=== PATIENT | female | born 1990 | race Caucasian/White ===

== ENCOUNTER 2018-07-11 07:53 | Emergency (ER) | payer OTHER, MEDICAID, SELFPAY ==
[2018-07-11 08:00] VITALS: BP 103/67; PULSE 72; RESP 16; TEMP 36.5; O2SAT 100; BMI 29.0
[2018-07-11] MEDS: ALBUTEROL 2.5 MG/3 ML NEB (ADULT) INH (08:32)
--- NOTE | 2018-07-11 08:32 | ED_ITS ---
HPI - URI/Sore Throat General Chief Complaint: Upper Respiratory Symptoms Stated Complaint: SORE THROAT Time Seen by Provider: 07/11/18 08:16 Source: patient Mode of arrival: ambulatory History of Present Illness HPI Narrative: patient is a 28-year-old female presenting with sore throat and losing her voice for the last was 3 weeks. She says nothing is helping. She says she cannot talk in the morning. Throughout the day does get slightly better. she has a cough but nonproductive. His she says she occasionally smokes marijuana but is currently out of money so she is not smoking. She does have some shortness of breath but not too bad she has been using her inhaler but does not feel like it is helping. She was seen at a different facility earlier and was told that there was nothing anyone could do. MD Complaint: cough and sore throat Onset (ago): week(s) (3) Duration: constant Related Data Home Medications Medication Instructions Recorded Confirmed ACETAMINOPHEN (Acetaminophen) 1,000 mg PO BID #0 08/07/10 ALBUTEROL SULFATE (Ventolin / 1 ml INH QID #0 08/07/10 Proventil) INSULIN HUMAN NPH 10ML (HUMULIN N) 75 u SQ Q DAY #0 08/07/10 Insulin Human Regular (Humulin R / 20 units SQ TIDAC #0 08/07/10 Novolin R) Metformin Hydrochloride 1,000 mg PO TID #0 08/07/10 (Glucophage) [INSULIN LANTUS] 90 u SQ BID #0 08/07/10 Previous Rx's Medication Instructions Recorded ciprofloxacin HCl [Cipro] 500 mg PO BID 5 Days #0 tab 08/02/16 tramadol 50 mg PO Q6HP PRN #20 tab 08/02/16 insulin glargine [Lantus U-100 75 u SQ BID 30 Days #0 vial 08/23/16 Insulin] insulin regular human [Humulin R 20 unit SQ TIDCC 30 Days #0 ml 08/23/16 Regular U-100 Insuln] guaifenesin 200 mg PO Q4H PRN #120 ml 07/11/18 Allergies Allergy/AdvReac Type Severity Reaction Status Date / Time acetaminophen [From TYLENOL] Allergy Unknown RASH Verified 07/11/18 08:00 azithromycin Allergy Unknown RASH Verified 07/11/18 08:00 [From ZITHROMAX Z-BOY] Review of Systems Review of Systems ROS Unobtainable: All systems reviewed & are unremarkable except as noted in HPI and below Constitutional Denies chills, Denies fever(s), Denies lethargy and Denies weakness ENT Ears, Nose, Mouth, and Throat: Reports as per HPI Cardiovascular Denies chest pain, Denies irregular heart rhythm, Denies lightheadedness, Denies palpitations and Denies orthopnea Gastrointestinal Gastrointestinal: Denies abdominal pain, Denies change in bowel habits, Denies diarrhea, Denies nausea and Denies vomiting Genitourinary Denies hematuria, Denies flank pain, Denies urinary incontinence and Denies urinary urgency Musculoskeletal Denies back pain, Denies muscle weakness, Denies numbness and Denies tingling Integumentary/Breasts Denies pruritus, Denies erythema, Denies rash and Denies wounds Neurologic Denies numbness, Denies tingling and Denies weakness Endocrine Denies palpitations [facility] Medical History Diabetes (Acute) Social History housing: homeless occupational status: unemployed substance use type: marijuana Social History housing: homeless occupational status: unemployed substance use type: marijuana Exam Initial Vital Signs Initial Vital Signs: Vital Signs Temperature 97.7 F 07/11/18 08:00 Pulse Rate 72 07/11/18 08:00 Respiratory Rate 16 07/11/18 08:00 Blood Pressure 103/67 07/11/18 08:00 Pulse Oximetry 100 07/11/18 08:00 GENERAL: Alert well-appearing female no acute distress HEENT: Head atraumatic,EOMI, pupils reactive, PHARYNX:No erythema, no tonsillar exudate, no cervical lymphadenopathy CARDIOVASCULAR: Regular rate and rhythm without murmurs, rubs or gallops. RESPIRATORY: Breath sounds equal bilaterally, no wheezes rales or rhonchi. ABDOMEN: Soft, nontender. Normoactive bowel sounds all 4 quadrants. No guarding or rebound. EXTREMITIES: Normal range of motion, no clubbing or edema. Neurovascularly intact NEUROLOGICAL: Alert and oriented x4.Normal gait and speech. SKIN: Warm, dry, no laceration, no petechiae, no rashes or lesions. Course Orders Ordered: Discontinued Medications Albuterol (Ventolin) 2.5 mg INH NOW ONE Stop: 07/11/18 08:30 Last Admin: 07/11/18 08:32 Dose: 2.5 mg Vital Signs - 8 hr 07/11/18 08:00 07/11/18 08:35 07/11/18 09:15 Temperature 97.7 F Pulse Rate 72 75 91 H Respiratory Rate 16 18 Blood Pressure 103/67 97/62 Blood Pressure [Left Arm] 97/62 Pulse Oximetry 100 100 100 MDM - URI/Sore Throat Lab Data Point of Care Testing Rapid Strep A Negative MDM Narrative Medical decision making narrative: asked patient about taking care of her diabetes. She says that her glucose is typically about 300 is difficult he all being homeless that she is not eating frequently. She is able to get her insulin and medications. She has been using appropriately. No signs of DKA. Discharge Plan Departure Patient Disposition: Home Clinical Impression: Laryngitis, Chest pain Discharge Date/Time: 07/11/18 09:15 Interventions: ED Discharge Assessment Last Done: 07/11/18 09:15 Instructions: DI for Laryngitis Activity Restrictions/Additional Instructions: *You have been diagnosed with laryngitis *What to do: no antibiotics indicated at this time *Continue to take medications as directed albuterol 1-2 puffs every 4 hr if needed for coughing or shortness of breath Guaifenesin cough syrup every 4 hr if needed for cough *Follow up with your primary care provider in 2-3 days *Return to ER if you should have difficulty breathing, sweats and chills, or any new, worsening or concerning symptoms Prescriptions: New guaifenesin 100 mg/5 mL liquid 200 mg PO Q4H PRN (Reason: cold symptoms) Qty: 120 RF: 0 No Action Insulin Human Regular (Humulin R / Novolin R) 20 units SQ TIDAC Qty: 0 RF: 0 INSULIN HUMAN NPH 10ML (HUMULIN N) 75 u SQ Q DAY Qty: 0 RF: 0 [INSULIN LANTUS] 90 u SQ BID Qty: 0 RF: 0 ALBUTEROL SULFATE (Ventolin / Proventil) 1 ml INH QID Qty: 0 RF: 0 Metformin Hydrochloride (Glucophage) 1,000 mg PO TID Qty: 0 RF: 0 ACETAMINOPHEN (Acetaminophen) 1,000 mg PO BID Qty: 0 RF: 0 tramadol 50 MG tablet 50 mg PO Q6HP PRNQty: 20 RF: 0 ciprofloxacin HCl [Cipro] 500 MG tablet 500 mg PO BID 5 Days Qty: 0 RF: 0 insulin glargine [Lantus U-100 Insulin] 100 UNIT/1 ML solution 75 u SQ BID 30 Days Qty: 0 RF: 0 insulin regular human [Humulin R Regular U-100 Insuln] 100 UNIT/1 ML solution 20 unit SQ TIDCC 30 Days Qty: 0 RF: 0 Referrals: Pastor Perales MD [Primary Care Provider] -
[2018-07-11 08:35] VITALS: PULSE 75; RESP 18; O2SAT 100
[2018-07-11 09:15] VITALS: BP 97/62; PULSE 91; O2SAT 100
== END 2018-07-11 09:15 | disposition home or self-care (01) ==
PROVIDERS: Emergency Provider Emergency Medicine; Family Provider Family Medicine; PCP Family Medicine
DX: J04.0 Acute laryngitis (principal); R07.89 Other chest pain
CPT/HCPCS: 87880; 94640; 99282; 99283; J7613

== ENCOUNTER 2025-03-20 19:43 | Emergency (ER) | payer OTHER, MEDICAID, SELFPAY ==
[2025-03-20 19:49] VITALS: BP 98/65; PULSE 116; RESP 18; TEMP 36.5; O2SAT 98; BMI 29.7
--- NOTE | 2025-03-20 20:47 | ED_ITS ---
HPI - Skin/Abscess/Foreign Bdy
--- NOTE | 2025-03-20 20:47 | ED.SKABFB ---
HPI - Skin/Abscess/Foreign Bdy <Lata Chikis, DO - Last Filed: 03/23/25 13:18> General Chief complaint: Skin/Abscess/Foreign Body Stated complaint: Skin boil on L glut, painful, sore on L breast Time Seen by Provider: 03/20/25 19:51 Source: patient Mode of arrival: Wheelchair Limitations: no limitations History of Present Illness HPI narrative: Patient is a 35-year-old female history of diabetes on glipizide experiencing homelessness presenting today with multiple abscesses. She reports that there is 1 on her right buttock and 1 on her right breast. She denies any kind of injection. She has had these before. Apparently her boyfriend tried to open and length of the 1 on her buttock but it is still quite painful. She feels like she is having hot sweats but no chills. Related Data Home Medications ?Medication ?Instructions ?Recorded ?Confirmed ACETAMINOPHEN (Acetaminophen) 1,000 mg PO BID ##0 08/07/10 ALBUTEROL SULFATE (Ventolin / 1 ml INH QID ##0 08/07/10 Proventil) INSULIN HUMAN NPH 10ML (HUMULIN N) 75 u SQ Q DAY ##0 08/07/10 Insulin Human Regular (Humulin R / 20 units SQ TIDAC ##0 08/07/10 Novolin R) Metformin Hydrochloride 1,000 mg PO TID ##0 08/07/10 (Glucophage) [INSULIN LANTUS] 90 u SQ BID ##0 08/07/10 Previous Rx's ?Medication ?Instructions ?Recorded ciprofloxacin HCl 500 mg tablet 500 mg PO BID 5 days #0 tabs 08/02/16 (Cipro) tramadol 50 mg tablet 50 mg PO Q6HP PRN #20 tabs 08/02/16 insulin glargine 100 unit/mL 75 u SQ BID 30 days #0 vials 08/23/16 subcutaneous solution (Lantus U-100 Insulin) insulin regular human 100 unit/mL 20 unit (0.2 mL) SQ TIDCC 30 days 08/23/16 injection solution (Humulin R #0 mL Regular U-100 Insulin) guaifenesin 100 mg/5 mL oral liquid 200 mg (10 mL) PO Q4H PRN cold 07/11/18 symptoms #120 mL sulfamethoxazole 800 2 tab PO BID 7 days #28 tabs 11/08/25 mg-trimethoprim 160 mg tablet (Bactrim DS) Allergies Allergy/AdvReac Type Severity Reaction Status Date / Time acetaminophen (From TYLENOL) Allergy Unknown RASH Verified 03/20/25 19:49 azithromycin (From ZITHROMAX Allergy Unknown RASH Verified 03/20/25 19:49 Z-BOY) Patient History <Lata Diop DO - Last Filed: 03/23/25 13:18> Medical History (Updated 03/20/25 @ 23:31 by Lata Diop DO) Diabetes Social History (Updated 07/11/18 @ 08:38 by Lata Diop DO) housing: homeless occupational status: unemployed substance use type: marijuana tobacco type: vaping Exam <Lata Diop DO - Last Filed: 03/23/25 13:18> Initial Vital Signs Initial Vital Signs: Vital Signs Temperature 97.7 F 03/20/25 19:49 Pulse Rate 116 H 03/20/25 19:49 Respiratory Rate 18 03/20/25 19:49 Blood Pressure 98/65 03/20/25 19:49 Pulse Oximetry 98 03/20/25 19:49 Oxygen Delivery Method Room Air 03/20/25 19:49 GENERAL: 35-year-old female appears older than stated age HEENT: Head atraumatic,EOMI, pupils reactive, face symmetric, very poor dentition CARDIOVASCULAR: Regular rate and rhythm without murmurs, rubs or gallops. RESPIRATORY: Breath sounds equal bilaterally, no wheezes rales or rhonchi. ABDOMEN: Soft, nontender. Normoactive bowel sounds all 4 quadrants. No guarding or rebound. EXTREMITIES: Normal range of motion, no clubbing or edema. Neurovascularly intact NEUROLOGICAL: Alert and oriented x4.Normal gait and speech. Cranial nerves II through XII grossly intact. SKIN: Multiple scarred lesions from prior abscesses all over right buttock there is a 2x3cm open wound that is draining there is induration no significant fluctuation. Right breast has a scabbed over lesion about 3 x 4 <Kian Sloan DO - Last Filed: 03/21/25 00:17> Initial Vital Signs Initial Vital Signs: Vital Signs Temperature 97.7 F 03/20/25 19:49 Pulse Rate 116 H 03/20/25 19:49 Respiratory Rate 18 03/20/25 19:49 Blood Pressure 98/65 03/20/25 19:49 Pulse Oximetry 98 03/20/25 19:49 Oxygen Delivery Method Room Air 03/20/25 19:49 Procedures <Lata Diop DO - Last Filed: 03/23/25 13:18> Abscess I/D I&D #1: Site: hector-rectal (right buttock) Side (if applicable): right Local Anesthetic: lidocaine 1% Amount of anesthesia used (mL): 3 Technique: incised with #11 blade Amount of fluid expressed (mL): 2 Course <Lata Diop DO - Last Filed: 03/23/25 13:18> Orders Ordered: Discontinued Medications Sodium Chloride (Normal Saline 0.9%) 1,000 mls @ 1,000 mls/hr IV BOLUS ONE Stop: 03/20/25 21:57 Last Infusion: 03/20/25 23:18 Dose: Infused Documented By: Admin: 03/20/25 22:03 Dose: 1,000 mls/hr Documented By: RACHELL Ceftriaxone Sodium 1,000 mg/ (Sodium Chloride) 100 mls @ 200 mls/hr IV NOW ONE Stop: 03/20/25 22:25 Last Infusion: 03/20/25 23:32 Dose: Infused Documented By: Admin: 03/20/25 22:54 Dose: 200 mls/hr Documented By: RACHELL Lidocaine HCl (Lidocaine 1% (Pf) 5 Ml) 5 ml INJ NOW ONE Stop: 03/20/25 22:25 Last Admin: 03/20/25 22:29 Dose: 5 ml Documented By: JUAN Vital Signs Vital signs: Vital Signs - 8 hr 03/20/25 19:49 03/20/25 21:26 03/20/25 21:59 Temperature 97.7 F Pulse Rate 116 H 98 H 104 H Respiratory Rate 18 Blood Pressure 98/65 Pulse Oximetry 98 96 99 Oxygen Delivery Method Room Air 03/20/25 22:00 03/20/25 22:00 03/20/25 22:30 Temperature Pulse Rate 105 H 104 H Respiratory Rate Blood Pressure 156/85 H Pulse Oximetry 99 99 Oxygen Delivery Method 03/20/25 22:30 03/20/25 23:00 03/20/25 23:00 Temperature Pulse Rate 105 H Respiratory Rate Blood Pressure 147/70 H 136/96 H Pulse Oximetry 98 Oxygen Delivery Method <Kian Sloan DO - Last Filed: 03/21/25 00:17> Orders Ordered: Discontinued Medications Sodium Chloride (Normal Saline 0.9%) 1,000 mls @ 1,000 mls/hr IV BOLUS ONE Stop: 03/20/25 21:57 Last Infusion: 03/20/25 23:18 Dose: Infused Documented By: Admin: 03/20/25 22:03 Dose: 1,000 mls/hr Documented By: RACHELL Ceftriaxone Sodium 1,000 mg/ (Sodium Chloride) 100 mls @ 200 mls/hr IV NOW ONE Stop: 03/20/25 22:25 Last Infusion: 03/20/25 23:32 Dose: Infused Documented By: Admin: 03/20/25 22:54 Dose: 200 mls/hr Documented By: RACHELL Lidocaine HCl (Lidocaine 1% (Pf) 5 Ml) 5 ml INJ NOW ONE Stop: 03/20/25 22:25 Last Admin: 03/20/25 22:29 Dose: 5 ml Documented By: JUAN Vital Signs Vital signs: Vital Signs - 8 hr 03/20/25 19:49 03/20/25 21:26 03/20/25 21:59 Temperature 97.7 F Pulse Rate 116 H 98 H 104 H Respiratory Rate 18 Blood Pressure 98/65 Pulse Oximetry 98 96 99 Oxygen Delivery Method Room Air 03/20/25 22:00 03/20/25 22:00 03/20/25 22:30 Temperature Pulse Rate 105 H 104 H Respiratory Rate Blood Pressure 156/85 H Pulse Oximetry 99 99 Oxygen Delivery Method 03/20/25 22:30 03/20/25 23:00 03/20/25 23:00 Temperature Pulse Rate 105 H Respiratory Rate Blood Pressure 147/70 H 136/96 H Pulse Oximetry 98 Oxygen Delivery Method MDM - Skin/Abscess/Foreign Bdy <Lata Diop DO - Last Filed: 03/23/25 13:18> Lab Data 03/20/25 21:55 03/20/25 21:55 Labs: Lab Results 03/20/25 03/20/25 03/20/25 Range/Units 20:58 21:36 21:55 WBC 11.0 (4.5-11.0) X10^3/uL RBC 4.23 (4.0-5.2) X10^6/uL Hgb 11.2 L (12.0-16.0) g/dL Hct 33.0 L (36-46) % MCV 78.1 L (80-100) fL MCH 26.5 (26-34) PG MCHC 34.0 (30-36) % RDW 13.7 (11.6-14.8) % Plt Count 297 (150-400) X10^3/uL Neut % (Auto) 72.4 (50-75) % Lymph % (Auto) 17.4 L (25-40) % [place] % (Auto) 7.1 (3-14) % Eos % (Auto) 2.3 (2-4) % Baso % (Auto) 0.8 (0-2) % Neut # (Auto) 8000 H (7371-9952) /uL Lymph # (Auto) 1900 (2366-1286) /uL [place] # (Auto) 800 (0-900) /uL Eos # (Auto) 300 (0-450) /uL Baso # (Auto) 100 (0-100) /uL VBG pH (7.33-7.43) VBG pCO2 (45-50) mmHg VBG pO2 (35-45) mmHg VBG HCO3 (24-28) mmol/L VBG Total CO2 (24-29) mmol/L VBG O2 Saturation (70-75) % VBG Base Excess (0-4) mmol/L Sodium 129 L (137-145) mmol/L Potassium 3.3 L (3.4-5.1) mmol/L Chloride 96 L (98-107) mmol/L Carbon Dioxide 28 (22-32) mmol/L BUN 16 (7-17) mg/dL Creatinine 1.27 H (0.52-1.04) mg/dL Estimated GFR 56 L (>60) mL/min BUN/Creatinine Ratio 12.6 (6-22) Glucose 662 H* (70-99) mg/dL POC Whole Bld Glucose > 500 H* (70-99) mg/dL Lactate 2.0 (0.7-2.1) mmol/L Calcium 8.1 L (8.4-10.2) mg/dL Total Bilirubin 0.1 L (0.2-1.3) mg/dL AST 16 (14-36) IU/L ALT 13 (<35) IU/L Alkaline Phosphatase 159 H (38-126) U/L Total Protein 6.9 (6.3-8.2) g/dL Albumin 3.2 L (3.5-5.0) g/dL Globulin 3.7 (1.7-4.1) g/dL Albumin/Globulin Ratio 0.9 L (1.0-2.8) Urine RBC 1-5/hpf (0-5/HPF) Urine WBC 1-5/hpf (0-5/HPF) Ur Squamous Epith Cells 1-5 /hpf (0-5/HPF) Urine Bacteria Occasional (0-1) (None) Ur Culture Indicated? Cult not indicated Vol Urine Centrifuged 10ml (spun) Ketones 0.04 (<0.27) mmol/L 03/20/25 Range/Units 22:03 WBC (4.5-11.0) X10^3/uL RBC (4.0-5.2) X10^6/uL Hgb (12.0-16.0) g/dL Hct (36-46) % MCV (80-100) fL MCH (26-34) PG MCHC (30-36) % RDW (11.6-14.8) % Plt Count (150-400) X10^3/uL Neut % (Auto) (50-75) % Lymph % (Auto) (25-40) % [place] % (Auto) (3-14) % Eos % (Auto) (2-4) % Baso % (Auto) (0-2) % Neut # (Auto) (3298-3804) /uL Lymph # (Auto) (5058-6287) /uL [place] # (Auto) (0-900) /uL Eos # (Auto) (0-450) /uL Baso # (Auto) (0-100) /uL VBG pH 7.38 (7.33-7.43) VBG pCO2 53.8 H (45-50) mmHg VBG pO2 30 L (35-45) mmHg VBG HCO3 32 H (24-28) mmol/L VBG Total CO2 30 H (24-29) mmol/L VBG O2 Saturation 55 L (70-75) % VBG Base Excess 5.3 H (0-4) mmol/L Sodium (137-145) mmol/L Potassium (3.4-5.1) mmol/L Chloride (98-107) mmol/L Carbon Dioxide (22-32) mmol/L BUN (7-17) mg/dL Creatinine (0.52-1.04) mg/dL Estimated GFR (>60) mL/min BUN/Creatinine Ratio (6-22) Glucose (70-99) mg/dL POC Whole Bld Glucose (70-99) mg/dL Lactate (0.7-2.1) mmol/L Calcium (8.4-10.2) mg/dL Total Bilirubin (0.2-1.3) mg/dL AST (14-36) IU/L ALT (<35) IU/L Alkaline Phosphatase (38-126) U/L Total Protein (6.3-8.2) g/dL Albumin (3.5-5.0) g/dL Globulin (1.7-4.1) g/dL Albumin/Globulin Ratio (1.0-2.8) Urine RBC (0-5/HPF) Urine WBC (0-5/HPF) Ur Squamous Epith Cells (0-5/HPF) Urine Bacteria (None) Ur Culture Indicated? Vol Urine Centrifuged Ketones (<0.27) mmol/L Point of Care Testing Glucose POC 500 Urine Dip Bedside Urine Glucose 1000 mg/dl Bedside Urine Bilirubin - Negative Bedside Urine Ketone - Negative Urine Specific [place] 1.015 Bedside Urine Occult Blood +/- Bedside Urine pH 6.0 Bedside Urine Protein +++ 300 Bedside Urine Urobilinogen - Negative Bedside Urine Nitrite - Negative Bedside Urine Leukocytes - Negative Esterase MDM Narrative Medical decision making narrative: GIORGI CC: Abscesses Complicating co-morbidities: Homelessness, diabetes Data collected from: Patient Medical records reviewed: 1 previous ED record from 2019 Differential considered: Sepsis DKA Exam documented above, pertinent findings include: 35-year-old female appears older than stated age she has multiple scars over her body poor dentition right buttock has significant induration which is already draining no significant erythema the right breast has a scab but no surrounding erythema fluctuation or pain. Lab Test results independently reviewed as above. Pertinent findings: WBC is 11 no anemia Venous pH is 7.38 Glucose 662 Anion gap 5.0 Sodium is slightly low at 129 likely secondary to elevated glucose, potassium slightly low 3.3 chloride 96 creatinine 1.27 Lactate 2.0, blood cultures pending Independently reviewed EKG as above Imaging studies independently reviewed: None Consultations: [ ] Treatments: IV fluids, Rocephin Re-evaluations: Patient had an I and D of her right buttock small amount of fluid was expressed tolerated procedure well Discussion: Patient is a 35-year-old female history of diabetes presenting today with wounds. Initial concern for sepsis she was slightly hypotensive and tachycardic. Blood work does show hyperglycemia without evidence of sepsis. He takes glipizide at home. She reports that she does not like needles so she will not take insulin I offered her metformin however she reports she will not take metformin due to ongoing diarrhea. At this time can likely be discharged with antibiotics.Signed out to Dr. Sloan. Patient was signed out to me by Dr. Cottrell, patient completed her fluids and her antibiotics, I informed her that she should follow up with primary care to discuss alternatives for better glycemic control given the fact that she does not like metformin and/or insulin given needles. Lab work is not consistent with DKA, did receive antibiotics and fluids. She will be discharged home with Bactrim she verbalized understanding and agrees to being discharged home with outpatient follow up <Kian Sloan, - Last Filed: 03/21/25 00:17> Lab Data Labs: Lab Results 03/20/25 03/20/25 03/20/25 Range/Units 20:58 21:36 21:55 WBC 11.0 (4.5-11.0) X10^3/uL RBC 4.23 (4.0-5.2) X10^6/uL Hgb 11.2 L (12.0-16.0) g/dL Hct 33.0 L (36-46) % MCV 78.1 L (80-100) fL MCH 26.5 (26-34) PG MCHC 34.0 (30-36) % RDW 13.7 (11.6-14.8) % Plt Count 297 (150-400) X10^3/uL Neut % (Auto) 72.4 (50-75) % Lymph % (Auto) 17.4 L (25-40) % [place] % (Auto) 7.1 (3-14) % Eos % (Auto) 2.3 (2-4) % Baso % (Auto) 0.8 (0-2) % Neut # (Auto) 8000 H (5775-0403) /uL Lymph # (Auto) 1900 (1659-3465) /uL [place] # (Auto) 800 (0-900) /uL Eos # (Auto) 300 (0-450) /uL Baso # (Auto) 100 (0-100) /uL VBG pH (7.33-7.43) VBG pCO2 (45-50) mmHg VBG pO2 (35-45) mmHg VBG HCO3 (24-28) mmol/L VBG Total CO2 (24-29) mmol/L VBG O2 Saturation (70-75) % VBG Base Excess (0-4) mmol/L Sodium 129 L (137-145) mmol/L Potassium 3.3 L (3.4-5.1) mmol/L Chloride 96 L (98-107) mmol/L Carbon Dioxide 28 (22-32) mmol/L BUN 16 (7-17) mg/dL Creatinine 1.27 H (0.52-1.04) mg/dL Estimated GFR 56 L (>60) mL/min BUN/Creatinine Ratio 12.6 (6-22) Glucose 662 H* (70-99) mg/dL POC Whole Bld Glucose > 500 H* (70-99) mg/dL Lactate 2.0 (0.7-2.1) mmol/L Calcium 8.1 L (8.4-10.2) mg/dL Total Bilirubin 0.1 L (0.2-1.3) mg/dL AST 16 (14-36) IU/L ALT 13 (<35) IU/L Alkaline Phosphatase 159 H (38-126) U/L Total Protein 6.9 (6.3-8.2) g/dL Albumin 3.2 L (3.5-5.0) g/dL Globulin 3.7 (1.7-4.1) g/dL Albumin/Globulin Ratio 0.9 L (1.0-2.8) Urine RBC 1-5/hpf (0-5/HPF) Urine WBC 1-5/hpf (0-5/HPF) Ur Squamous Epith Cells 1-5 /hpf (0-5/HPF) Urine Bacteria Occasional (0-1) (None) Ur Culture Indicated? Cult not indicated Vol Urine Centrifuged 10ml (spun) Ketones 0.04 (<0.27) mmol/L 03/20/25 Range/Units 22:03 WBC (4.5-11.0) X10^3/uL RBC (4.0-5.2) X10^6/uL Hgb (12.0-16.0) g/dL Hct (36-46) % MCV (80-100) fL MCH (26-34) PG MCHC (30-36) % RDW (11.6-14.8) % Plt Count (150-400) X10^3/uL Neut % (Auto) (50-75) % Lymph % (Auto) (25-40) % [place] % (Auto) (3-14) % Eos % (Auto) (2-4) % Baso % (Auto) (0-2) % Neut # (Auto) (2535-4677) /uL Lymph # (Auto) (0987-5796) /uL [place] # (Auto) (0-900) /uL Eos # (Auto) (0-450) /uL Baso # (Auto) (0-100) /uL VBG pH 7.38 (7.33-7.43) VBG pCO2 53.8 H (45-50) mmHg VBG pO2 30 L (35-45) mmHg VBG HCO3 32 H (24-28) mmol/L VBG Total CO2 30 H (24-29) mmol/L VBG O2 Saturation 55 L (70-75) % VBG Base Excess 5.3 H (0-4) mmol/L Sodium (137-145) mmol/L Potassium (3.4-5.1) mmol/L Chloride (98-107) mmol/L Carbon Dioxide (22-32) mmol/L BUN (7-17) mg/dL Creatinine (0.52-1.04) mg/dL Estimated GFR (>60) mL/min BUN/Creatinine Ratio (6-22) Glucose (70-99) mg/dL POC Whole Bld Glucose (70-99) mg/dL Lactate (0.7-2.1) mmol/L Calcium (8.4-10.2) mg/dL Total Bilirubin (0.2-1.3) mg/dL AST (14-36) IU/L ALT (<35) IU/L Alkaline Phosphatase (38-126) U/L Total Protein (6.3-8.2) g/dL Albumin (3.5-5.0) g/dL Globulin (1.7-4.1) g/dL Albumin/Globulin Ratio (1.0-2.8) Urine RBC (0-5/HPF) Urine WBC (0-5/HPF) Ur Squamous Epith Cells (0-5/HPF) Urine Bacteria (None) Ur Culture Indicated? Vol Urine Centrifuged Ketones (<0.27) mmol/L Point of Care Testing Glucose POC 500 Urine Dip Bedside Urine Glucose 1000 mg/dl Bedside Urine Bilirubin - Negative Bedside Urine Ketone - Negative Urine Specific [place] 1.015 Bedside Urine Occult Blood +/- Bedside Urine pH 6.0 Bedside Urine Protein +++ 300 Bedside Urine Urobilinogen - Negative Bedside Urine Nitrite - Negative Bedside Urine Leukocytes - Negative Esterase MDM Narrative Medical decision making narrative: MDM CC: Abscesses Complicating co-morbidities: Homelessness, diabetes Data collected from: Patient Medical records reviewed: 1 previous ED record from 2018 Differential considered: Sepsis DKA Exam documented above, pertinent findings include: 35-year-old female appears older than stated age she has multiple scars over her body poor dentition right buttock has significant induration which is already draining no significant erythema the right breast has a scab but no surrounding erythema fluctuation or pain. Lab Test results independently reviewed as above. Pertinent findings: WBC is 11 no anemia Venous pH is 7.38 Glucose 662 Anion gap 5.0 Sodium is slightly low at 129 likely secondary to elevated glucose, potassium slightly low 3.3 chloride 96 creatinine 1.27 Lactate 2.0, blood cultures pending Independently reviewed EKG as above Imaging studies independently reviewed: None Consultations: [ ] Treatments: IV fluids, Rocephin Re-evaluations: Patient had an I and D of her right buttock small amount of fluid was expressed tolerated procedure well Discussion: Patient is a 35-year-old female history of diabetes presenting today with wounds. Initial concern for sepsis she was slightly hypotensive and tachycardic. Blood work does show hyperglycemia without evidence of sepsis. He takes glipizide at home. She reports that she does not like needles so she will not take insulin I offered her metformin however she reports she will not take metformin due to ongoing diarrhea. At this time can likely be discharged with antibiotics. Patient was signed out to me by Dr. Cottrell, patient completed her fluids and her antibiotics, I informed her that she should follow up with primary care to discuss alternatives for better glycemic control given the fact that she does not like metformin and/or insulin given needles. Lab work is not consistent with DKA, did receive antibiotics and fluids. She will be discharged home with Bactrim she verbalized understanding and agrees to being discharged home with outpatient follow up Discharge Plan Departure Patient Disposition: Home Clinical Impression: Abscess of skin, Hyperglycemia Instructions: DI for Skin Abscess Activity Restrictions/Additional Instructions: *You have been diagnosed with skin abscess and high glucose *What to do: At this time you must make sure that you are taking your glipizide you need to follow up with your primary care you will likely need adjustments in your glipizide and change in your medication. *Continue to take medications as directed Doxycycline 100 mg twice a day for 10 days *Follow up with your primary care provider in 2-3 days or call [phone] *Return to ER if you should have increasing redness swelling drainage thirst vomiting confusion or any new, worsening or concerning symptoms Prescriptions: New sulfamethoxazole-trimethoprim [Bactrim DS] 800-160 mg tablet 2 tab PO BID 7 Days Qty: 28 0RF No Action Insulin Human Regular (Humulin R / Novolin R) 20 units SQ TIDAC Qty: 0 INSULIN HUMAN NPH 10ML (HUMULIN N) 75 u SQ Q DAY Qty: 0 [INSULIN LANTUS] 90 u SQ BID Qty: 0 ALBUTEROL SULFATE (Ventolin / Proventil) 1 ml INH QID Qty: 0 Metformin Hydrochloride (Glucophage) 1,000 mg PO TID Qty: 0 ACETAMINOPHEN (Acetaminophen) 1,000 mg PO BID Qty: 0 tramadol 50 MG tablet 50 mg PO Q6HP PRNQty: 20 0RF ciprofloxacin HCl [Cipro] 500 MG tablet 500 mg PO BID 5 Days Qty: 0 0RF insulin glargine [Lantus U-100 Insulin] 100 UNIT/1 ML solution 75 u SQ BID 30 Days Qty: 0 0RF insulin regular human [Humulin R Regular U-100 Insuln] 100 UNIT/1 ML solution 20 unit SQ TIDCC 30 Days Qty: 0 0RF guaifenesin 100 mg/5 mL liquid 200 mg PO Q4H PRN (Reason: cold symptoms) Qty: 120 0RF Referrals: Pastor Perales MD [Primary Care Provider, Family Practice] Stand Alone Forms: Patient Portal/API
[2025-03-20 21:26] VITALS: PULSE 98; O2SAT 96
[2025-03-20 21:59] VITALS: PULSE 104; O2SAT 99
[2025-03-20 22:00] VITALS: BP 156/85; PULSE 105; O2SAT 99
[2025-03-20] MEDS: SODIUM CHLORIDE 0.9% 1,000 ML 1000 ML IV (22:03)
[2025-03-20 22:05] LABS: Add Manual Diff / Slide Review NO; Hematocrit 33.0 % (36-46); Hemoglobin 11.2 g/dL (12.0-16.0); Lymphocytes Absolute Auto 1900 /uL (1100-4500); Mean Corpuscular HGB Conc 34.0 % (30-36); Mean Corpuscular Hemoglobin 26.5 PG (26-34); Mean Corpuscular Volume 78.1 fL (80-100); Platelet Count 297 X10^3/uL (150-400)
[2025-03-20 22:07] LABS: Base Excess VBG 5.3 mmol/L (0-4); HCO3 VBG 32 mmol/L (24-28); Oxygen Saturation VBG 55 % (70-75); PCO2 VBG 53.8 mmHg (45-50); PO2 VBG 30 mmHg (35-45); Total CO2 VBG 30 mmol/L (24-29); pH VBG 7.38 (7.33-7.43)
[2025-03-20 22:14] LABS: Culture Indicated Urine Cult Not Indicated
[2025-03-20 22:15] LABS: Lactate (Lactic Acid) 2.0 mmol/L (0.7-2.1)
[2025-03-20 22:16] LABS: Alanine Aminotransferase 13 IU/L (<35); Albumin 3.2 g/dL (3.5-5.0); Albumin Globulin Ratio 0.9 (1.0-2.8); Alkaline Phosphatase 159 U/L (38-126); Blood Urea Nitrogen 16 mg/dL (7-17); Calcium 8.1 mg/dL (8.4-10.2); Carbon Dioxide 28 mmol/L (22-32); Chloride 96 mmol/L (98-107); Estimated Glomerular Filt Rate 56 mL/min (>60); Globulin 3.7 g/dL (1.7-4.1); HEMOLYSIS < 15 (0-50); Potassium 3.3 mmol/L (3.4-5.1); Sodium 129 mmol/L (137-145); Total Protein 6.9 g/dL (6.3-8.2)
[2025-03-20 22:22] LABS: Ketones (Beta-Hydroxybutyrate) 0.04 mmol/L (<0.27)
[2025-03-20] MEDS: LIDOCAINE 1% (PF) 5 ML INJ (22:29)
[2025-03-20 22:30] VITALS: BP 147/70; PULSE 104; O2SAT 99
[2025-03-20 22:32] LABS: Glucose 662 mg/dL (70-99)
[2025-03-20 23:00] VITALS: BP 136/96; PULSE 105; O2SAT 98
== END 2025-03-21 00:25 | disposition home or self-care (01) ==
PROVIDERS: Emergency Medicine; Emergency Provider Student in an Organized Health Care Education/Training Program; Family Provider Family Medicine; PCP Family Medicine
DX: L02.31 Cutaneous abscess of buttock (principal); N61.1 Abscess of the breast and nipple; E11.65 Type 2 diabetes mellitus with hyperglycemia; Z59.00 Homelessness unspecified
CPT/HCPCS: 10060; 36415; 80053; 81003; 81015; 82009; 82805; 82962; 83605; 85025; 87040; 87070; 87075; 87077; 87147; 87186; 87205; 96361; 96365; 99284; J0696; J7030; J7050